=== PATIENT | female | born 1960 | race Caucasian/White ===

== ENCOUNTER 2016-07-30 08:15 | Emergency (ER) | payer BC ==
[~2016-07-30 08:15] MED LIST: *DENIES; ASA5GR PO; MSCONTIN PO; PCET PO; PR25 PO
== END 2016-07-30 08:46 | disposition home or self-care (01) ==
LOC: ER 08:15
DX: M25.562 Pain in left knee (principal); Z79.82 Long term (current) use of aspirin; Z79.899 Other long term (current) drug therapy
CPT/HCPCS: 73560-LT; 96372; 99284; J1885